=== PATIENT | female | born 1995 ===

== ENCOUNTER 2018-07-15 05:54 | Inpatient (IN) ==
[2018-07-15] MEDS ORDERED: ceFAZolin 2,000 MG in PREMIX 1 EACH IV ONE (06:20)
[2018-07-15] MEDS ORDERED: CITRIC ACID/SODIUM CITRATE 30 ML UDCUP PO ONE (06:20)
[2018-07-15] MEDS ORDERED: FAMOTIDINE 20 MG/2 ML VIAL IV ONE (06:20)
[2018-07-15] MEDS ORDERED: OXYTOCIN 10 UNIT/ML VIAL IM ONE (06:22)
[2018-07-15] MEDS ORDERED: OXYTOCIN/LR 30 UNIT/1,000 ML BAG IV ONE (06:22)
[2018-07-15] MEDS ORDERED: ceFAZolin 3,000 MG in SYRINGE 1 EACH IV ONE (06:24)
[2018-07-15] MEDS ORDERED: LACTATED RINGERS 1,000 ML IV ONE (06:24)
[2018-07-15] MEDS ORDERED: LACTATED RINGERS 1,000 ML IV SCH ×2 (06:30→11:30)
[2018-07-15 07:18] LABS: Basophils % 0.3 % (0.0-0.8); Eosinophils # 0.7 10*3/uL (0.0-0.87); Eosinophils % 6.2 % (0.00-10.9); Hematocrit 31.9 VOL% (35.7-47.0); Hemoglobin 9.5 GM/DL (12.0-16.0); Immature Granulocytes Absolute 0.12 #; Lymphocytes # 2.3 10*3/uL (1.4-4.0); Lymphocytes % 19.5 % (21.3-54.2); Mean Corpuscular HGB Conc 29.8 GM/DL (32-36); Mean Corpuscular Hemoglobin 24 PG (27-34); Mean Corpuscular Volume 79.8 FL (87-102); Mean Platelet Volume 9.6 FL (9.6-12.0); Monocytes # 0.6 10*3/uL (0.11-0.8); Monocytes % 5.1 % (1.7-12.7); Neutrophils # 8.2 10*3/uL (1.4-7.4); Neutrophils % 67.9 % (38.7-73.9); Platelet Count 270 T/CUMM (130-400); Red Cell Distribution Width 17.2 % (9.3-17.3)
[2018-07-15 07:49] LABS: Albumin 2.4 G/DL (3.4-5.0); Bilirubin,Total 0.5 MG/DL (0.2-1.0); Calcium 8.5 MG/DL (8.5-10.1); Osmolality,Calculated 275.4 MOS/KG (273-304); Potassium 3.9 MMOL/L (3.5-5.1); Total Protein 6.6 G/DL (6.4-8.3)
[2018-07-15] MEDS ORDERED: SODIUM CHLORIDE 0.9% 1,000 ML IV PRN (10:14)
[2018-07-15 10:50] LABS: Apearance,Urine CLEAR (Clear); Bilirubin,Urine Negative (Negative); Blood, Urine Negative (Negative); Glucose,Urine (UA) Negative (Negative); Ketones,Urine 20 mg/dL (Negative); Mucus,Urine Occasional /LPF (Occasional); Nitrite,Urine Negative (Negative); Protein,Urine Negative; RBC,Urine 1 /HPF (0-4); Urine Color Straw (Yellow); Urine Specific Gravity 1.006 (1.001-1.035); Urine Urobilinogen < 2.0 EU/DL (0.2-1.0); WBC,Urine <1 /HPF (0-6)
[2018-07-15] MEDS ORDERED: MORPHINE 10 MG/10 ML VIAL ONE (10:56)
[2018-07-15] MEDS ORDERED: BUPIVACAINE SPINAL 0.75% 2 ML AMP SPINAL ONE (10:56)
[2018-07-15] MEDS ORDERED: SODIUM CHLORIDE 0.9% 250 ML IV ONE (10:56)
[2018-07-15] MEDS ORDERED: fentaNYL 100 MCG/2 ML VIAL ONE (10:56)
[2018-07-15 11:00] LABS: Cord Arterial Blood HCO3 18.8 MMOL/L
[2018-07-15 11:02] LABS: Cord Venous Blood HCO3 21.3 MMOL/L; Cord Venous Blood PCO2 38.7 MMHG; Cord Venous Blood PO2 41.1 MMHG
[2018-07-15] MEDS ORDERED: ACETAMINOPHEN 325 MG TABLET PO PRN (11:06)
[2018-07-15] MEDS ORDERED: ACETAMINOPHEN 1,000 MG/100 ML VIAL IV ONE (11:06)
[2018-07-15] MEDS ORDERED: RHO(D) IMMUNE GLOBULIN 300 MCG SYRINGE IM ONE (11:06)
[2018-07-15] MEDS ORDERED: SIMETHICONE CHEW 80 MG TABLET PO PRN (11:06)
[2018-07-15] MEDS ORDERED: OXYTOCIN/LR 20 UNIT/1,000 ML BAG IV ONE (11:06)
[2018-07-15] MEDS ORDERED: MAGNESIUM HYDROXIDE SUSP 30 ML UDCUP PO PRN (11:06)
[2018-07-15] MEDS ORDERED: ceFAZolin 1,000 MG in SYRINGE 1 EACH IV SCH (11:30)
[2018-07-15] MEDS: ONDANSETRON 4 MG/2 ML VIAL IV PRN ×2 (13:48→17:03)
[2018-07-15] MEDS ORDERED: MEPERIDINE 50 MG/1 ML VIAL IV PRN (17:07)
[2018-07-15 17:58] LABS: Basophils % 0.2 % (0.0-0.8); Eosinophils # 0.3 10*3/uL (0.0-0.87); Eosinophils % 2.3 % (0.00-10.9); Hemoglobin 10.8 GM/DL (12.0-16.0); Immature Granulocytes % 0.7 %; Lymphocytes # 1.9 10*3/uL (1.4-4.0); Lymphocytes % 14.4 % (21.3-54.2); Mean Corpuscular HGB Conc 31.8 GM/DL (32-36); Mean Corpuscular Hemoglobin 25 PG (27-34); Mean Platelet Volume 9.2 FL (9.6-12.0); Monocytes # 0.7 10*3/uL (0.11-0.8); Monocytes % 5.4 % (1.7-12.7); Neutrophils # 10.3 10*3/uL (1.4-7.4); Platelet Count 339 T/CUMM (130-400); Red Blood Count 4.36 MC/CUMM (3.8-5.5); Red Cell Distribution Width 18.1 % (9.3-17.3); White Blood Count 13.4 T/CUMM (4-12)
[2018-07-16] MEDS ORDERED: ceFAZolin 1,000 MG in SYRINGE 1 EACH IV SCH (01:30)
[2018-07-16] MEDS: DOCUSATE SODIUM 100 MG CAPSULE PO SCH ×3 (02:24→23:27)
[2018-07-16 07:28] LABS: Basophils % 0.4 % (0.0-0.8); Eosinophils # 0.8 10*3/uL (0.0-0.87); Eosinophils % 7.4 % (0.00-10.9); Hematocrit 31.1 VOL% (35.7-47.0); Hemoglobin 9.9 GM/DL (12.0-16.0); Immature Granulocytes % 0.6 %; Immature Granulocytes Absolute 0.07 #; Lymphocytes # 1.9 10*3/uL (1.4-4.0); Lymphocytes % 17.4 % (21.3-54.2); Mean Corpuscular HGB Conc 31.8 GM/DL (32-36); Mean Corpuscular Hemoglobin 25 PG (27-34); Mean Corpuscular Volume 77.6 FL (87-102); Mean Platelet Volume 9.1 FL (9.6-12.0); Monocytes # 0.7 10*3/uL (0.11-0.8); Monocytes % 6.5 % (1.7-12.7); Neutrophils # 7.3 10*3/uL (1.4-7.4); Neutrophils % 67.7 % (38.7-73.9); Platelet Count 321 T/CUMM (130-400); Red Blood Count 4.01 MC/CUMM (3.8-5.5); Red Cell Distribution Width 17.9 % (9.3-17.3); White Blood Count 10.9 T/CUMM (4-12)
[2018-07-16] MEDS: METOCLOPRAMIDE 10 MG/2 ML VIAL IV SCH ×2 (07:39→16:58)
[2018-07-16] MEDS: MULTIVITAMIN (PRENATAL) TABLET PO SCH (08:35)
[2018-07-16] MEDS: FERROUS SULFATE 325 MG TABLET PO SCH (08:36)
[2018-07-16] MEDS: IBUPROFEN 800 MG TABLET PO PRN (12:10)
[2018-07-16] MEDS ORDERED: MAGNESIUM CITRATE 300 ML BOTTLE PO ONE (13:00)
[2018-07-17] MEDS ORDERED: METOCLOPRAMIDE 10 MG TABLET PO SCH
[2018-07-17] MEDS: MULTIVITAMIN (PRENATAL) TABLET PO SCH (08:21)
[2018-07-17] MEDS: FERROUS SULFATE 325 MG TABLET PO SCH (08:21)
[2018-07-17] MEDS: DOCUSATE SODIUM 100 MG CAPSULE PO SCH ×2 (08:21→22:10)
[2018-07-18 07:24] VITALS: BP 122/64
[2018-07-18] MEDS: IBUPROFEN 800 MG TABLET PO PRN (07:42)
[2018-07-18] MEDS: DOCUSATE SODIUM 100 MG CAPSULE PO SCH (07:43)
[2018-07-18] MEDS: MULTIVITAMIN (PRENATAL) TABLET PO SCH (07:43)
== END 2018-07-18 12:10 | disposition home or self-care (01) | DRG 540 ==
LOC: N.LDOUT 05:54 → N.LD 05:59 → N.OB 14:47
PROVIDERS: ADMIT Obstetrics & Gynecology; ATTEND Obstetrics & Gynecology
PROC: LDCSECT (ICD-10-PCS; 2018-07-15 09:30)

== ENCOUNTER 2020-06-14 07:51 | Inpatient (IN) ==
[2020-06-14] MEDS ORDERED: CITRIC ACID/SODIUM CITRATE 30 ML UDCUP PO ONE (08:45)
[2020-06-14] MEDS ORDERED: FAMOTIDINE 20 MG/2 ML VIAL IV ONE (08:45)
[2020-06-14] MEDS: LACTATED RINGERS 1,000 ML IV SCH ×2 (09:01→09:02)
[2020-06-14 09:02] LABS: Basophils % 0.3 % (0.0-0.8); Eosinophils # 0.1 10*3/uL (0.0-0.87); Eosinophils % 0.8 % (0.00-10.9); Hematocrit 29.5 VOL% (35.7-47.0); Hemoglobin 8.5 GM/DL (12.0-16.0); Immature Granulocytes % 1.2 %; Immature Granulocytes Absolute 0.14 #; Lymphocytes # 2.3 10*3/uL (1.4-4.0); Lymphocytes % 19.3 % (21.3-54.2); Mean Corpuscular HGB Conc 28.8 GM/DL (32-36); Mean Corpuscular Volume 79.3 FL (87-102); Mean Platelet Volume 9.2 FL (9.6-12.0); Monocytes % 5.9 % (1.7-12.7); NRBC # 0.03 10*3/uL; Neutrophils % 72.5 % (38.7-73.9); Platelet Count 445 T/CUMM (130-400); Red Blood Count 3.72 MC/CUMM (3.8-5.5); Red Cell Distribution Width 18.7 % (9.3-17.3); White Blood Count 11.8 T/CUMM (4-12)
[2020-06-14] MEDS ORDERED: ceFAZolin 3,000 MG in SYRINGE 1 EACH IV ONE (09:09)
[2020-06-14] MEDS ORDERED: OXYTOCIN/LR 30 UNIT/1,000 ML BAG IV ONE (09:10)
[2020-06-14] MEDS ORDERED: OXYTOCIN 10 UNIT/ML VIAL IM ONE (09:10)
[2020-06-14 09:29] LABS: Platelet Estimate Normal
[2020-06-14 09:30] LABS: Anisocytosis 2+; Polychromasia Slight
[2020-06-14] MEDS ORDERED: MORPHINE 10 MG/10 ML VIAL ONE (09:32)
[2020-06-14] MEDS ORDERED: PHENYLEPHRINE 1 MG/10 ML SYRINGE IV ONE (09:32)
[2020-06-14] MEDS ORDERED: ONDANSETRON 4 MG/2 ML VIAL ONE (09:32)
[2020-06-14] MEDS ORDERED: BUPIVACAINE SPINAL 0.75% 2 ML AMP SPINAL ONE (09:33)
[2020-06-14] MEDS ORDERED: SODIUM CHLORIDE 0.9% 1,000 ML IV PRN (10:07)
[2020-06-14 10:48] LABS: Cord Arterial Blood HCO3 20.9 MMOL/L
[2020-06-14 10:49] LABS: Cord Venous Blood HCO3 21.5 MMOL/L; Cord Venous Blood PCO2 38.3 MMHG; Cord Venous Blood PO2 39.4 MMHG
[2020-06-14 11:01] LABS: Apearance,Urine CLEAR (Clear); Bilirubin,Urine Negative (Negative); Blood, Urine Negative (Negative); Glucose,Urine (UA) Negative (Negative); Ketones,Urine 5 mg/dL (Negative); Nitrite,Urine Negative (Negative); Protein,Urine Negative; RBC,Urine 1 /HPF (0-4); Squamous Epithelial Cell,Urine Occasional /HPF (0-10); Urine Color Straw (Yellow); Urine Specific Gravity 1.006 (1.001-1.035); Urine Urobilinogen < 2.0 EU/DL (0.2-1.0); WBC,Urine 1 /HPF (0-6)
[2020-06-14] MEDS ORDERED: DEXAMETHASONE 4 MG/1 ML VIAL ONE (11:12)
[2020-06-14] MEDS ORDERED: ROPIVACAINE 0.5% 30 ML VIAL ONE (11:12)
[2020-06-14] MEDS ORDERED: SIMETHICONE CHEW 80 MG TABLET PO PRN (11:21)
[2020-06-14] MEDS ORDERED: RHO(D) IMMUNE GLOBULIN 300 MCG SYRINGE IM ONE (11:21)
[2020-06-14] MEDS ORDERED: ONDANSETRON 4 MG/2 ML VIAL IV PRN (11:21)
[2020-06-14] MEDS ORDERED: ACETAMINOPHEN 325 MG TABLET PO PRN (11:21)
[2020-06-14] MEDS ORDERED: OXYTOCIN/LR 20 UNIT/1,000 ML BAG IV ONE (11:21)
[2020-06-14] MEDS ORDERED: MAGNESIUM HYDROXIDE SUSP 30 ML UDCUP PO PRN (11:21)
[2020-06-14] MEDS ORDERED: LACTATED RINGERS 1,000 ML IV SCH (11:30)
[2020-06-14] MEDS ORDERED: fentaNYL 100 MCG/2 ML VIAL ONE (11:36)
[2020-06-14] MEDS ORDERED: MIDAZOLAM 2 MG/2 ML VIAL ONE (11:37)
[2020-06-14] MEDS ORDERED: propofoL 200 MG/20 ML VIAL IV ONE (11:37)
[2020-06-14 15:14] LABS: Basophils % 0.2 % (0.0-0.8); Hematocrit 32.2 VOL% (35.7-47.0); Hemoglobin 9.5 GM/DL (12.0-16.0); Immature Granulocytes Absolute 0.18 #; Lymphocytes # 0.8 10*3/uL (1.4-4.0); Lymphocytes % 4.3 % (21.3-54.2); Mean Corpuscular HGB Conc 29.5 GM/DL (32-36); Mean Corpuscular Volume 79.9 FL (87-102); Monocytes % 2.9 % (1.7-12.7); Neutrophils % 91.6 % (38.7-73.9); Platelet Count 407 T/CUMM (130-400); Red Blood Count 4.03 MC/CUMM (3.8-5.5); Red Cell Distribution Width 18.2 % (9.3-17.3); White Blood Count 18.4 T/CUMM (4-12)
[2020-06-14 15:35] LABS: Anisocytosis Slight; Hypochromasia Slight; Lymphocytes 7 % (20-55); Microcytosis Slight; Platelet Estimate Normal; Polychromasia Slight; Segmented Neutrophils 93 % (50-85); Total Cells Counted 100
[2020-06-14] MEDS: ceFAZolin 1,000 MG in SYRINGE 1 EACH IV SCH (19:30)
[2020-06-14] MEDS: DOCUSATE SODIUM 100 MG CAPSULE PO SCH (21:19)
[2020-06-15] MEDS: ceFAZolin 1,000 MG in SYRINGE 1 EACH IV SCH (01:06)
[2020-06-15] MEDS: IBUPROFEN 800 MG TABLET PO PRN ×3 (02:13→19:14)
[2020-06-15] MEDS ORDERED: ceFAZolin 1,000 MG in SYRINGE 1 EACH IV SCH (03:30)
[2020-06-15 06:07] LABS: Basophils % 0.2 % (0.0-0.8); Eosinophils % 0.1 % (0.00-10.9); Hematocrit 26.7 VOL% (35.7-47.0); Immature Granulocytes % 0.9 %; Immature Granulocytes Absolute 0.11 #; Lymphocytes # 2.1 10*3/uL (1.4-4.0); Lymphocytes % 17.2 % (21.3-54.2); Mean Corpuscular Volume 78.8 FL (87-102); Mean Platelet Volume 9.5 FL (9.6-12.0); Monocytes % 8.2 % (1.7-12.7); NRBC # 0.03 10*3/uL; Neutrophils % 73.4 % (38.7-73.9); Platelet Count 363 T/CUMM (130-400); Red Blood Count 3.39 MC/CUMM (3.8-5.5); Red Cell Distribution Width 18.3 % (9.3-17.3); White Blood Count 12.5 T/CUMM (4-12)
[2020-06-15] MEDS: DOCUSATE SODIUM 100 MG CAPSULE PO SCH ×2 (12:49→21:10)
[2020-06-15] MEDS: MULTIVITAMIN (PRENATAL) TABLET PO SCH (12:49)
[2020-06-16] MEDS: IBUPROFEN 800 MG TABLET PO PRN (02:57)
[2020-06-16] MEDS: DOCUSATE SODIUM 100 MG CAPSULE PO SCH (09:05)
[2020-06-16] MEDS: MULTIVITAMIN (PRENATAL) TABLET PO SCH (09:05)
== END 2020-06-16 10:34 | disposition home or self-care (01) | DRG 785 ==
LOC: N.LDOUT 07:51 → N.LD 07:52
PROVIDERS: ADMIT Obstetrics & Gynecology; ATTEND Obstetrics & Gynecology